=== PATIENT | female | born 1975 | race Caucasian/White ===

== ENCOUNTER 2017-12-07 08:29 | Emergency (ER) | payer MEDICAID ==
[~2017-12-07] VITALS: Ht 170.2 cm; Wt 64.5 kg
[~2017-12-07 08:29] MED LIST: HYDR-3533 PO; PERC5TAB12 PO; PHEN12.5 PO; PRED20 PO
[2017-12-07 08:33] VITALS: BP 132/67; PULSE 61; RESP 16; TEMP 97.6; O2SAT 100
[2017-12-07] MEDS ORDERED: SODIUM CHLOR 0.9% 1000 ML INJ 1,000 ML IV SCH (08:50)
--- NOTE | 2017-12-07 08:55 | PD ---
HPI Chief Complaint: Abdominal Pain Time Seen by Provider: 08:37 Travel History International Travel<30 days: No Contact w/Intl Traveler<30days: No Traveled to known affect area: No History of Present Illness HPI 42yo F with PMH of gastroparesis and ulcerative colitis presents to the ED with c/o abdominal pain that has been constant for 4 days. Said she gets abdominal pain often but has not had an ulcerative colitis flare in a while. Pain is cramping, mainly in lower abdomen and lying down seems to be better. Denies any current nausea or vomiting but always have some nausea with her gastroparesis. Denies any fever, chest pain, sob, dysuria, hematuria, vaginal bleeding or discharge. PFSH Past Medical History ADD: Yes Depression: Yes Cancer: Yes (CERVICAL BIOPSY 2002) Diminished Hearing: No Gastrointestinal Disorders: Yes (GASTROPARISIS, ULCERATIVE COLITIS) Genitourinary: Yes (ENOMETRIOSIS. PID.) Immunizations Current: Yes Migraines: Yes (GESTATIONAL) ?: Not LMP: 11/24/17 : 3 Para: 3 Ovarian Cysts: Yes Past Surgical History Appendectomy: No Cholecystectomy: No Oral Surgery: Yes Social History Alcohol Use: No Tobacco Use: Yes (07/28 PPD) Substance Use: No Allergies-Medications (Allergen,Severity, Reaction): Coded Allergies: amoxicillin (Unverified Allergy, Severe, Diarrhea, 12/07/17) "DIARRHEA, VOMITING, SCREAMING IN PAIN, STOMACH CRAMPING" PER PT clavulanic acid (Unverified Allergy, Severe, Diarrhea, 12/07/17) "DIARRHEA, VOMITING, SCREAMING IN PAIN, STOMACH CRAMPING" PER PT penicillin G (Unverified Allergy, Severe, Anaphylaxis, 12/07/17) Reported Meds & Prescriptions Reported Meds & Active Scripts Active No Active Prescriptions or Reported Medications Review of Systems Except as stated in HPI: all other systems reviewed are Neg Physical Exam Narrative GENERAL: 42yo F in mild distress. SKIN: Focused skin assessment warm/dry. HEAD: Atraumatic. Normocephalic. CARDIOVASCULAR: Regular rate and rhythm. No murmur appreciated. RESPIRATORY: No accessory muscle use. Clear to auscultation. Breath sounds equal bilaterally. GASTROINTESTINAL: Abdomen soft, Diffuse ttp, more in lower abdomen. No rebound tenderness or guarding. MUSCULOSKELETAL: No obvious deformities. No clubbing. No cyanosis. No edema. NEUROLOGICAL: Awake and alert. No obvious cranial nerve deficits. Motor grossly within normal limits. Normal speech. PSYCHIATRIC: Appropriate mood and affect; insight and judgment normal. Data Data Last Documented VS Vital Signs Date Time Temp Pulse Resp B/P (MAP) Pulse Ox O2 Delivery O2 Flow Rate FiO2 12/07/17 10:10 55 16 122/62 (82) 99 Room Air 12/07/17 08:33 97.6 Orders Orders Complete Blood Count With Diff (12/07/17 08:50) Comprehensive Metabolic Panel (12/07/17 08:50) Lipase (12/07/17 08:50) Urinalysis - C+S If Indicated (12/07/17 08:50) Ct Abd/Pel W Iv Contrast(Rout) (12/07/17 08:50) Morphine Inj (Morphine Inj) (12/07/17 09:00) Sodium Chlor 0.9% 1000 Ml Inj (Ns 1000 M (12/07/17 08:50) Ed Urine Pregnancytest Poc (12/07/17 08:50) Ondansetron Odt (Zofran Odt) (12/07/17 09:00) Methylprednisolone So Succ Inj (Solumedr (12/07/17 09:00) Iohexol 350 Inj (Omnipaque 350 Inj) (12/07/17 09:42) Urine Culture (12/07/17 09:00) Labs Laboratory Tests Test 12/07/17 09:00 12/07/17 09:05 Urine Color YELLOW Urine Turbidity CLEAR Urine pH 5.5 Urine Specific [place] LESS/EQUAL 1.005 Urine Protein NEG mg/dL Urine Glucose (UA) NEG mg/dL Urine Ketones NEG mg/dL Urine Occult Blood NEG Urine Nitrite NEG Urine Bilirubin NEG Urine Urobilinogen 0.2 MG/DL Urine Leukocyte Esterase SMALL Urine WBC 0-2 /hpf Urine Squamous Epithelial Cells 0-5 /hpf Urine Bacteria MOD /hpf Microscopic Urinalysis Comment CULTURE INDICATED White Blood Count 5.6 TH/MM3 Red Blood Count 4.37 MIL/MM3 Hemoglobin 11.7 GM/DL Hematocrit 35.3 % Mean Corpuscular Volume 80.7 FL Mean Corpuscular Hemoglobin 26.8 PG Mean Corpuscular Hemoglobin Concent 33.2 % Red Cell Distribution Width 15.8 % Platelet Count 265 TH/MM3 Mean Platelet Volume 10.1 FL Neutrophils (%) (Auto) 64.1 % Lymphocytes (%) (Auto) 29.2 % Monocytes (%) (Auto) 4.6 % Eosinophils (%) (Auto) 1.1 % Basophils (%) (Auto) 1.0 % Neutrophils # (Auto) 3.5 TH/MM3 Lymphocytes # (Auto) 1.6 TH/MM3 Monocytes # (Auto) 0.3 TH/MM3 Eosinophils # (Auto) 0.1 TH/MM3 Basophils # (Auto) 0.1 TH/MM3 CBC Comment DIFF FINAL Differential Comment Blood Urea Nitrogen 9 MG/DL Creatinine 0.66 MG/DL Random Glucose 86 MG/DL Total Protein 7.3 GM/DL Albumin 3.9 GM/DL Calcium Level 8.8 MG/DL Alkaline Phosphatase 51 U/L Aspartate Amino Transf (AST/SGOT) 9 U/L Alanine Aminotransferase (ALT/SGPT) 24 U/L Total Bilirubin 0.5 MG/DL Sodium Level 140 MEQ/L Potassium Level 3.8 MEQ/L Chloride Level 109 MEQ/L Carbon Dioxide Level 24.9 MEQ/L Anion Gap 6 MEQ/L Estimat Glomerular Filtration Rate 99 ML/MIN Lipase 361 U/L [facility] Medical Decision Making Medical Screen Exam Complete: Yes Emergency Medical Condition: Yes Differential Diagnosis Ulcerative colitis flare vs. gastroparesis vs. diverticulitis vs. cystitis vs. abscess Narrative Course 42yo F with ulcerative colitis here with abdominal pain. Labs reviewed, no leukocytosis. H/H normal. Lipase normal. LFTs normal. UA showed moderate bacteria. WBC 0-2. Pt has no urinary complaints so will not treat with antibiotics at this time. Urine negative. CT a/p showed 2.7cm rim enhancing follicular type cysts in left ovary. I informed pt of this and she said she has history of ovarian cysts and have appointment with her [employer] next week. Said this feels like her ulcerative colitis and feels better after pain medication and steroid. Will give a few days of steroids. Pt no longer nauseous. Tolerating PO and wants to go home. Diagnosis Primary Impression: Abdominal pain Qualified Codes: R10.9 - Unspecified abdominal pain Patient Instructions: General Instructions Departure Forms: Tests/Procedures Additional Instructions: Please follow up with your primary care physician as well as your marketing reporting analyst. Return to the ED if symptoms worsen. Med/Other Pt SpecificInfo: Prescription(s) given Scripts Acetaminophen (Tylenol) 325 Mg Tab 650 MG PO Q6H Y for PAIN SCALE 1 TO 4, #20 TAB 0 Refills Prov: Mary Tiwari DO 12/07/17 Prednisone (Prednisone) 50 Mg Tab 50 MG PO DAILY for 5 Days, #5 TAB 0 Refills Prov: Mary Tiwari DO 12/07/17 Disposition: 01 DISCHARGE HOME Condition: Stable Mary Tiwari DO December 07, 2017 08:55
[2017-12-07] MEDS ORDERED: MORPHINE SULFATE 4 MG/ML INJ IV PUSH ONE (09:00)
[2017-12-07] MEDS ORDERED: methylPREDNISolone SOD SUCC 125 MG/2 ML VIAL IV PUSH ONE (09:00)
[2017-12-07] MEDS ORDERED: ONDANSETRON ODT 4 MG TAB PO ONE (09:00)
[2017-12-07 09:42] LABS: AUTOMATED NEUTROPHIL # 3.5 TH/MM3 (1.8-7.7); BASOPHIL # 0.1 TH/MM3 (0-0.2); EOSINOPHIL # 0.1 TH/MM3 (0-0.4); EOSINOPHIL % 1.1 % (0.0-4.0); HEMATOCRIT 35.3 % (35.0-46.0); HEMOGLOBIN 11.7 GM/DL (11.6-15.3); LYMPH % 29.2 % (9.0-44.0); LYMPHOCYTE # 1.6 TH/MM3 (1.0-4.8); MEAN CELL VOLUME 80.7 FL (80.0-100.0); MEAN CORPUSCULAR HEMOGLOBIN 26.8 PG (27.0-34.0); MEAN CORPUSCULAR HGB CONC 33.2 % (32.0-36.0); MEAN PLATELET VOLUME 10.1 FL (7.0-11.0); MONO % 4.6 % (0.0-8.0); MONOCYTE # 0.3 TH/MM3 (0-0.9); NEUT % 64.1 % (16.0-70.0); PLATELET COUNT 265 TH/MM3 (150-450); RED BLOOD COUNT 4.37 MIL/MM3 (4.00-5.30); RED CELL DISTRIBUTION WIDTH 15.8 % (11.6-17.2); WHITE BLOOD COUNT 5.6 TH/MM3 (4.0-11.0)
[2017-12-07] MEDS ORDERED: IOHEXOL 350 MG/ML 10 ML VIAL (for RAD DIAG) IVCONTRAST ONE (09:42)
[2017-12-07 09:43] LABS: BILIRUBIN, URINE NEG (NEG); BLOOD, URINE NEG (NEG); GLUCOSE,URINE NEG (NEG); KETONE, URINE NEG (NEG); NITRITE,URINE NEG (NEG); PH, URINE 5.5 (5.0-8.5); URINE COLOR YELLOW (YELLW/STRAW); URINE LEUKOCYTE ESTERASE SMALL (NEG)
--- NOTE | 2017-12-07 09:55 | RADRPT ---
EXAM DATE/TIME: 12/07/2017 09:30 [place] COMPARISON: CT ABDOMEN & PELVIS W CONTRAST, March 11, 2016, 12:28. INDICATIONS : Bilateral lower quadrant pain. IV CONTRAST: 85 cc Omnipaque 350 (iohexol) IV ORAL CONTRAST: No oral contrast ingested. RADIATION DOSE: 6.46 CTDIvol (mGy) MEDICAL HISTORY : Ulcerative colitis. SURGICAL HISTORY : None. ENCOUNTER: Initial ACUITY: 4 - 6 days PAIN SCALE: 3/10 LOCATION: Bilateral lower quadrant TECHNIQUE: Volumetric scanning of the abdomen and pelvis was performed. Using automated exposure control and ad justment of the mA and/or kV according to patient size, radiation dose was kept as low as reasonably achievable to obtain optimal diagnostic quality images. DICOM format image data is available electro nically for review and comparison. FINDINGS: LOWER LUNGS: The visualized lower lungs are clear. LIVER: Homogeneous density without lesion. There is no dilation of the biliary tree. A possible punctate ga llstone in the dependent portion of the gallbladder lumen. SPLEEN: Normal size without lesion. PANCREAS: Within normal limits. KIDNEYS: Normal in size and shape. There is no mass, stone or hydronephrosis. ADRENAL GLANDS: Within normal limits. VASCULAR: There is no aortic aneurysm. Circumaortic left renal vein. BOWEL/MESENTERY: The stomach, small bowel, and colon demonstrate no acute abnormality. There is no free intraperitone al air or fluid. Appendix is identified and is radiographically normal. ABDOMINAL WALL: Within normal limits. RETROPERITONEUM: There is no lymphadenopathy. BLADDER: No wall thickening or mass. REPRODUCTIVE: Retroverted uterus. Parenchymal calcification far posteriorly probably represents a degenerated fibro id. Small varicosities in the left side of the uterus. 2.7 cm rim-enhancing follicular cyst in the le ft ovary. INGUINAL: There is no lymphadenopathy or hernia. MUSCULOSKELETAL: Within normal limits for patient age. CONCLUSION: 1. 2.7 cm rim-enhancing follicular type cysts the left ovary. This could explain the left-sided sympt oms the patient is experiencing. 2. Minimal varicosities on the left side of the uterus. The left gonadal vein is not overtly dilated, however. 3. Punctate gallstone in the gallbladder lumen. 4. Retroverted uterus with findings of a degenerated, calcified fibroid on the left. Monroe Melo MD on December 07, 2017 at 9:44 Board Certified Radiologist. This report was verified electronically.
[2017-12-07 09:56] LABS: ALBUMIN 3.9 GM/DL (3.4-5.0); BICARBONATE 24.9 MEQ/L (21.0-32.0); BLOOD UREA NITROGEN 9 MG/DL (7-18); CALCIUM 8.8 MG/DL (8.5-10.1); GLUCOSE,RANDOM 86 MG/DL (74-106)
[2017-12-07 09:59] LABS: ALT (GPT) 24 U/L (10-53)
[2017-12-07 10:00] LABS: TOTAL BILIRUBIN ADULT 0.5 MG/DL (0.2-1.0); TOTAL PROTEIN 7.3 GM/DL (6.4-8.2)
[2017-12-07 10:01] LABS: AST (GOT) 9 U/L (15-37)
[2017-12-07 10:02] LABS: ALKALINE PHOSPHATASE 51 U/L (45-117)
[2017-12-07 10:04] LABS: BACTERIA, URINE MOD /hpf; SQUAMOUS EPITHELIAL CELL URINE 0-5 /hpf (0-5); WBC, URINE 0-2 /hpf (0-5)
[2017-12-07 10:05] LABS: CHLORIDE 109 MEQ/L (98-107); SODIUM (NA) 140 MEQ/L (136-145)
[2017-12-07 10:08] LABS: CREATININE 0.66 MG/DL (0.50-1.00); GLOMERULAR FILTRATION RATE 99 ML/MIN (>89)
[2017-12-07 10:10] VITALS: BP 122/62; PULSE 55; RESP 16; O2SAT 99
[2017-12-07 11:25] VITALS: BP 116/68; PULSE 68; RESP 18; O2SAT 99
[2017-12-07] MEDS ORDERED: PRED50 PO (11:48)
[2017-12-07] MEDS ORDERED: TYLE325T PO (11:48)
== END 2017-12-07 11:58 | disposition home or self-care (01) ==
LOC: PHED 08:29
DX: N83.202 Unspecified ovarian cyst, left side (principal); K80.80 Other cholelithiasis without obstruction; N85.4 Malposition of uterus; F98.8 Other specified behavioral and emotional disorders with onset usually occurring in childhood and adolescence; F17.200 Nicotine dependence, unspecified, uncomplicated; Z88.0 Allergy status to penicillin; Z88.8 Allergy status to other drugs, medicaments and biological substances; Z87.19 Personal history of other diseases of the digestive system
CPT/HCPCS: 74177; 80053; 81001; 83690; 84703; 85025; 87086; 96361; 96374; 96375; 99284; J2270; J2930; J7030; Q9967